=== PATIENT | female | born 1960 | race Hispanic/Latino ===

== ENCOUNTER 2018-09-03 19:40 | Emergency (ER) | payer OTHER ==
[2018-09-03] MEDS ORDERED: NACL 0.9% 1000 ML 1,000 ML IV ONE (20:02)
[2018-09-03] MEDS ORDERED: ZOFRAN IV ONE (20:26)
[2018-09-03] MEDS ORDERED: MORPHINE IV ONE (20:26)
[2018-09-03] MEDS ORDERED: IMODIUM PO ONE (20:34)
--- NOTE | 2018-09-03 20:38 | Emergency Department Report ---
ED N/V/D HPI - General Chief complaint: Nausea/Vomiting/Diarrhea Stated complaint: ABD PAIN, DIARRHEA Time Seen by Provider: 09/03/18 20:12 Source: patient, EMS Mode of arrival: Stretcher Limitations: No Limitations - History of Present Illness Initial comments: 58-year-old female who presents to ED with complaint of nausea, vomiting, diarrhea since this afternoon. Patient denies any sick contacts. She reports diffuse abdominal pain and also lower back pain associated with this. Patient denies fever. PCP: none MD complaint: nausea, vomiting, diarrhea, abdominal pain -: This afternoon Description of Vomiting: food contents Description of Diarrhea: water Associated Abdominal Pain: Yes Location: diffuse Radiation: other (lower back) Severity: moderate Quality: aching Consistency: intermittent Improves with: none Worsens with: none Associated Symptoms: nausea/vomiting. denies: fever/chills - Related Data Previous Rx's Medication Instructions Recorded Last Taken Type Naproxen [Naprosyn TAB] 500 mg PO BID #30 tablet 05/05/14 Unknown Rx traMADol [Ultram 50 MG tab] 50 mg PO Q6HR PRN #20 tablet 05/05/14 Unknown Rx Dicyclomine [Bentyl] 20 mg PO QID PRN #20 tablet 09/03/18 Unknown Rx Nitrofurantoin Monohyd/M-Cryst 100 mg PO BID #14 capsule 09/03/18 Unknown Rx [Macrobid 100 mg Capsule] Ondansetron [Zofran Odt] 4 mg PO Q8HR PRN #20 tab.rapdis 09/03/18 Unknown Rx Allergies Allergy/AdvReac Type Severity Reaction Status Date / Time No Known Allergies Allergy Verified 05/05/14 09:41 ED Review of Systems ROS: Stated complaint: ABD PAIN, DIARRHEA Other details as noted in HPI Comment: All other systems reviewed and negative Constitutional: denies: chills, fever Gastrointestinal: abdominal pain Musculoskeletal: back pain ED Past Medical Hx - Past Medical History Previous Medical History?: No - Surgical History Past Surgical History?: No - Social History Smoking Status: Never Smoker Substance Use Type: Alcohol - Medications Home Medications: Home Medications Medication Instructions Recorded Confirmed Last Taken Type Naproxen [Naprosyn TAB] 500 mg PO BID #30 tablet 05/05/14 Unknown Rx traMADol [Ultram 50 MG tab] 50 mg PO Q6HR PRN #20 tablet 05/05/14 Unknown Rx Dicyclomine [Bentyl] 20 mg PO QID PRN #20 tablet 09/03/18 Unknown Rx Nitrofurantoin Monohyd/M-Cryst 100 mg PO BID #14 capsule 09/03/18 Unknown Rx [Macrobid 100 mg Capsule] Ondansetron [Zofran Odt] 4 mg PO Q8HR PRN #20 tab.rapdis 09/03/18 Unknown Rx ED Physical Exam - General Limitations: No Limitations General appearance: alert, other (appears uncomfortable) - Head Head exam: Present: atraumatic, normocephalic - Eye Eye exam: Present: normal appearance - ENT ENT exam: Present: mucous membranes moist - Neck Neck exam: Present: normal inspection - Respiratory Respiratory exam: Present: normal lung sounds bilaterally. Absent: respiratory distress - Cardiovascular Cardiovascular Exam: Present: regular rate, normal rhythm - GI/Abdominal GI/Abdominal exam: Present: soft, tenderness (moderate diffuse). Absent: distended - Extremities Exam Extremities exam: Present: normal inspection - Neurological Exam Neurological exam: Present: alert, oriented X3 - Psychiatric Psychiatric exam: Present: normal affect, normal mood - Skin Skin exam: Present: warm, dry, intact, normal color. Absent: rash ED Course Vital Signs 09/03/18 09/03/18 09/03/18 19:44 20:03 22:30 Temperature 97.8 F 98 F Pulse Rate 81 78 Respiratory 18 18 16 Rate Blood Pressure 135/77 128/68 [Left] O2 Sat by Pulse 99 99 99 Oximetry ED Medical Decision Making - Lab Data Result diagrams: 09/03/18 21:00 09/03/18 20:00 - Radiology Data Radiology results: report reviewed, image reviewed - Medical Decision Making 58-year-old female with vomiting, abdominal pain, and diarrhea. Vital signs normal. Serum labs unremarkable. CT abdomen and pelvis was done that shows gastroenteritis. Bladder wall thickening was noted on CT, patient has 3+ bacteria in the urine. Will treat for UTI since patient having lower abdominal pain with associated low back pain. Patient received IV fluids, Imodium, Zofran, morphine here in ED. Symptoms much improved. Patient feeling much better. We'll discharge home with prescription for antiemetics and antibiotics for UTI. Outpatient follow-up advised. Return precautions given. - Differential Diagnosis gastritis, gastroenteritis, UTI, kidney stone Critical care attestation.: If time is entered above; I have spent that time in minutes in the direct care of this critically ill patient, excluding procedure time. ED Disposition Clinical Impression: Gastroenteritis, UTI (urinary tract infection) Disposition: TO HOME OR SELFCARE Is pt being admited?: No Condition: Stable Instructions: Urinary Tract Infection in Women (ED), Gastroenteritis (ED) Prescriptions: Dicyclomine [Bentyl] 20 mg PO QID PRN #20 tablet PRN Reason: abdominal pain Nitrofurantoin Monohyd/M-Cryst [Macrobid 100 mg Capsule] 100 mg PO BID #14 capsule Ondansetron [Zofran Odt] 4 mg PO Q8HR PRN #20 tab.rapdis PRN Reason: Vomiting Referrals: JOSE DAVID TUCKER MD [Primary Care Provider] - 3-5 Days Time of Disposition: 23:03
[2018-09-03 20:42] LABS: Albumin 5.1 g/dL (3.9-5); BUN/Creatinine Ratio 30; Blood Urea Nitrogen 18 mg/dL (7-17); Calcium 9.8 mg/dL (8.4-10.2); Hemolysis Index 105
[2018-09-03 20:49] LABS: Bacteria,Urine 3+ /HPF (Negative); Bilirubin,Urine NEG (Negative); Blood,Urine NEG (Negative); Color,Urine Amber (Yellow); Mucus,Urine 3+ /HPF; Urobilinogen,Urine < 2.0 mg/dL (<2.0)
[2018-09-03 20:50] LABS: Alanine Aminotransferase 20 units/L (7-56)
[2018-09-03 21:31] LABS: Hematocrit 46.7 % (30.3-42.9); Hemoglobin 15.6 gm/dl (10.1-14.3); Mean Corpuscular HGB Conc 33 % (30-34); Mean Corpuscular Volume 90 fl (79-97); Platelet Count 197 K/mm3 (140-440); Red Blood Count 5.22 M/mm3 (3.65-5.03); Red Cell Distribution Width 13.5 % (13.2-15.2)
[2018-09-03 22:15] LABS: Band Neutrophils # (Manual) 0.6 K/mm3; Basophils % (Manual) 0 % (0.0-1.8); Eosinophils % (Manual) 0 % (0.0-4.3); Total Cells Counted 100
[2018-09-03 22:16] LABS: RBC Morphology Normal
--- NOTE | 2018-09-03 22:27 | Cat Scan Report ---
PROCEDURE: CT ABDOMEN PELVIS W CON HISTORY: abd pain/N/V FINDINGS: Contrast-enhanced CT of the abdomen and pelvis was performed and data was reformatted into the sagittal and coronal planes. The heart is normal in size. There is right middle lobe linear atelectasis. ABDOMEN: There is fatty infiltration of the liver without suspect focal hepatic lesion. The spleen is normal i n size at 10.4 cm. The adrenal glands and pancreas are within normal limits. There is wall thickening of the gastric body and antrum consistent with gastritis. There is wall thickening and fold thickening of multiple jejunal loops likely gastroenteritis. There is a fat density left upper pole renal lesion, consistent with angiomyolipoma, 1.0 cm. There is no renal or ureteral calculus. The abdominal aorta is normal in size. Pelvis: There is a normal appendix. There is no evidence of diverticulitis. The uterus and adnexa are within normal limits. There is trace stranding around the urinary bladder. Cystitis is not excluded. IMPRESSION: ABDOMEN: Suspected gastritis and gastroenteritis Fatty infiltration of the liver Left upper pole renal angiomyolipoma Pelvis: Normal appendix Trace stranding around urinary bladder. Cystitis is not excluded. This document is electronically signed by Rafa Lyn MD., September 03 2018 10:25:28 PM ET
[2018-09-03 23:21] VITALS: BP 128/68
== END 2018-09-03 23:00 | disposition home or self-care (01) ==
LOC: ED 19:40
DX: K52.9 Noninfective gastroenteritis and colitis, unspecified (principal); N39.0 Urinary tract infection, site not specified
CPT/HCPCS: 36415; 74177; 80053; 81001; 83690; 85007; 85025; 96361; 96374; 96375; 99284; J2270; J2405; J7030; Q9967